=== PATIENT | male | born 1935 | race Caucasian/White ===

== ENCOUNTER → 2016-07-27 | Outpatient (CLI) | payer OTHER, MEDICARE ==
[~2016-07-27] MED LIST: ACYCLOVIR 200200 MG; ADULT LOW DOSE81 MG PO; ALLOPURINOL 30300 M1 PO; ANTIVERT25 MG PO; ASPIRIN PO; ASPIRIN325 PO; ASPIRIN81 M2 PO; AVODART; BACTRIM DS TAB1 EACH PO; CIPRO500 MG PO; CITRATE OF MAG296 ML PO; DARVOCET-N 1001 EACH PO; DICLOFENAC SODI75 MG PO; EXELON1 EAC2 TD; FINASTERIDE5 MG PO; FLAGYL500 MG PO; FLEET ENEMA118 ML RC; FLOMAX PO; FLOMAX0.4 MG PO; LIPITOR; LOPRESSOR PO; LOPRESSOR25 PO; MOBIC; NAPROXEN 375 M375 M1 PO; NITROGLYCERIN0.4 MG SUBLING; NITROSTAT0.4 MG SUBLING; NORCO 5-325 TA1 EACH PO; PLAVIX 75 MG TA75 M1 PO; PLAVIX 75 MG TA75 MG PO; PROPOXY-N/APAP1 TAB; PROTONIX40 M1 PO; PROTONIX40 M2 PO; SEROQUEL 25 MG25 M1 PO; SIMVASTATIN80 MG PO; TAMSULOSIN HCL0.4 M1 PO; VALIUM2 MG PO; ZETIA10 MG PO
== END ==
LOC: ULTRA 10:31
DX: I25.10 Atherosclerotic heart disease of native coronary artery without angina pectoris (principal); I77.9 Disorder of arteries and arterioles, unspecified; I65.23 Occlusion and stenosis of bilateral carotid arteries